=== PATIENT | male | born 1995 | race Caucasian/White ===

== ENCOUNTER 2021-12-10 07:24 | Inpatient (IN) | payer MEDICAID ==
[~2021-12-10] VITALS: Ht 172.7 cm; Wt 73.7 kg
[2021-12-10 08:11] LABS: BASOPHILS % (AUTO) 0.4 % (0.0-2.0); HEMATOCRIT 43.4 % (41-53); HEMOGLOBIN 14.7 g/dL (13.5-17.5); LYMPHOCYTES # (AUTO) 3.2 K/uL (1.0-4.8); LYMPHOCYTES % (AUTO) 38.4 % (22.0-44.0); MEAN CORPUSCULAR HEMOGLOBIN 30.5 pg (26.0-34.0); MEAN CORPUSCULAR HGB CONC 33.8 G/dL (31.0-37.0); MEAN CORPUSCULAR VOLUME 90 fL (80-100); MONOCYTES # (AUTO) 1.1 K/uL (0.1-1.0); MONOCYTES % (AUTO) 13.5 % (2.0-9.0); NEUTROPHILS # (AUTO) 3.8 K/uL (1.8-7.7); NEUTROPHILS % (AUTO) 44.7 % (40.0-70.0); PLATELET COUNT (AUTO) 283 K/uL (150-450); RED CELL DISTRIBUTION WIDTH 13.8 % (11.5-14.5)
[2021-12-10 08:20] LABS: ANION GAP 9 mmol/L (8-16); CALCIUM, TOTAL 8.1 mg/dL (8.8-10.5); CARBON DIOXIDE 28 mmol/L (22-29); CHLORIDE 102 mmol/L (98-107); CREATININE 0.88 mg/dL (0.60-1.30); GLUCOSE,RANDOM 99 mg/dL (70-110); POTASSIUM 3.4 mmol/L (3.5-5.1); SODIUM SERUM 139 mmol/L (136-145); UREA NITROGEN, BLOOD 12 mg/dL (7-18)
[2021-12-10 08:21] LABS: GLOMERULAR FILTR. RATE CALC > 60 mL/min (>60)
[2021-12-10 08:26] LABS: ALANINE AMINOTRANSFERASE 36 U/L (12-78); ALBUMIN 3.9 g/dL (3.4-5.0); ALKALINE PHOSPHATASE 69 U/L (46-116); ASPARTATE AMINOTRANSFERASE 25 U/L (15-37); BILIRUBIN,TOTAL 1.2 mg/dL (0.1-1.0); TOTAL PROTEIN, SERUM 7.5 g/dL (6.4-8.2)
[2021-12-10 10:06] LABS: COVID AG,FIA SOURCE NASAL SWAB
[2021-12-10] MEDS ORDERED: LORazepam 2 MG TABLET PO PRN (13:45)
[2021-12-10] MEDS ORDERED: HALOPERIDOL 5 MG TABLET PO PRN (13:45)
[2021-12-10] MEDS ORDERED: ZOLPIDEM TARTRATE 10 MG TABLET PO PRN (13:45)
[2021-12-10 18:28] VITALS: BP 112/63
[2021-12-11 05:19] VITALS: BP 118/70
[2021-12-11 08:36] VITALS: BP 123/71
[2021-12-11] MEDS ORDERED: IBUPROFEN 400 MG TABLET PO PRN (09:30)
[2021-12-11] MEDS ORDERED: LOPERAMIDE HCL 2 MG CAPSULE PO PRN (09:30)
[2021-12-11] MEDS ORDERED: PETROLATUM,WHITE 28 GM JELLY TP PRN (09:30)
[2021-12-11] MEDS ORDERED: ALBUTEROL SULFATE HFA 90 MCG/PUFF 8 GM INHALER IH PRN (09:30)
[2021-12-11] MEDS ORDERED: DOCUSATE SODIUM 100 MG CAPSULE PO PRN (09:30)
[2021-12-11] MEDS ORDERED: ONDANSETRON HCL 4 MG TABLET PO PRN (09:30)
[2021-12-11] MEDS ORDERED: NICOTINE 14 MG/24 HOUR PATCH TD PRN (09:30)
[2021-12-11] MEDS ORDERED: CloNIDine HCL 0.1 MG TABLET PO PRN (09:30)
[2021-12-11] MEDS ORDERED: GuaiFENesin/D-METHORPHAN [SUGAR-FREE] 200-20MG/10 ML SYRUP UDCUP PO PRN (09:30)
[2021-12-11] MEDS ORDERED: MAG HYDROX/AL HYDROX/SIMETH ES 30 ML SUSPENSION UDCUP PO PRN (09:30)
[2021-12-11] MEDS ORDERED: ACETAMINOPHEN 325 MG TABLET PO PRN (09:30)
[2021-12-11] MEDS ORDERED: MAGNESIUM HYDROXIDE SUSPENSION 30 ML UDCUP PO PRN (09:30)
[2021-12-11] MEDS: ESCITALOPRAM OXALATE 10 MG TABLET PO SCH (10:17)
[2021-12-11] MEDS: NICOTINE 21 MG/24 HOUR PATCH TD SCH (11:00)
[2021-12-11 20:46] VITALS: BP 120/68
[2021-12-12 08:38] VITALS: BP 122/69
[2021-12-12] MEDS: NICOTINE 21 MG/24 HOUR PATCH TD SCH (09:25)
[2021-12-12] MEDS: ESCITALOPRAM OXALATE 10 MG TABLET PO SCH (09:25)
[2021-12-12 20:29] VITALS: BP 108/71
[2021-12-13 08:19] VITALS: BP 65/113
[2021-12-13] MEDS: NICOTINE 21 MG/24 HOUR PATCH TD SCH (09:14)
[2021-12-13] MEDS: ESCITALOPRAM OXALATE 10 MG TABLET PO SCH (09:15)
[2021-12-13 20:21] VITALS: BP 115/69
[2021-12-14 08:29] VITALS: BP 113/68
[2021-12-14] MEDS: ESCITALOPRAM OXALATE 10 MG TABLET PO SCH (08:32)
[2021-12-14] MEDS: NICOTINE 21 MG/24 HOUR PATCH TD SCH (08:32)
[2021-12-14] MEDS ORDERED: ESCI10 PO (09:31)
[2021-12-14] MEDS ORDERED: ESCI-8 PO (11:44)
== END 2021-12-14 14:01 | disposition home or self-care (01) | DRG 751 ==
LOC: EMS 07:28 → B2S 15:26
PROVIDERS: ADMIT Psychiatry & Neurology Psychiatry; ATTEND Psychiatry & Neurology Psychiatry
DX: F32.2 Major depressive disorder, single episode, severe without psychotic features (principal); R45.851 Suicidal ideations; E87.6 Hypokalemia; Z20.822 Contact with and (suspected) exposure to COVID-19; F10.10 Alcohol abuse, uncomplicated; F19.10 Other psychoactive substance abuse, uncomplicated; F41.9 Anxiety disorder, unspecified; Z59.00 Homelessness unspecified; Z79.899 Other long term (current) drug therapy
CPT/HCPCS: 80053; 85025; G0480